=== PATIENT | female | born 1975 | race Hispanic/Latino ===

== ENCOUNTER 2020-08-02 07:34 | Inpatient (IN) | payer MEDICAID, OTHER ==
[2020-08-02] VITALS (12 sets, daily range): BP systolic 97–134; BP diastolic 53–82
[~2020-08-02] VITALS: Ht 152.4 cm; Wt 71.7 kg
[2020-08-02 08:08] LABS: BASOPHILS % (AUTO) 0.7 % (0.0-5.0); HEMATOCRIT 53.7 % (36-48); LYMPHOCYTES % (AUTO) 10.7 % (21.0-51.0); MEAN CORPUSCULAR HEMOGLOBIN 28.7 pg (27.0-33.0); MEAN CORPUSCULAR HGB CONC 32.2 g/dL (32.0-36.0); MEAN CORPUSCULAR VOLUME 89.2 fL (79-99); MONOCYTES % (AUTO) 5.9 % (3.0-13.0); NEUTROPHILS % (AUTO) 80.6 % (40.0-77.0); PLATELET COUNT (AUTO) 324 K/uL (130-400); RED BLOOD CELL COUNT(AUTO) 6.02 MIL/uL (4.00-5.50)
[2020-08-02] MEDS ORDERED: ONDANSETRON HCL 4 MG/2 ML VIAL ONE (08:21)
[2020-08-02] MEDS ORDERED: INSULIN HUMULIN R 100 UNIT/ML 3ML ONE ×2 (08:22→10:03)
[2020-08-02] MEDS ORDERED: SODIUM CHLORIDE 0.9% 1000ML 2,000 ML IV ONE (08:23)
[2020-08-02 08:28] LABS: ALBUMIN 4.3 g/dL (3.5-5.0); BILIRUBIN,TOTAL 0.7 mg/dL (0.2-1.0); CREATININE 1.6 mg/dL (0.5-1.5); POTASSIUM 4.2 mmol/L (3.5-5.1); TOTAL PROTEIN, SERUM 8.7 g/dL (6.0-8.3)
[2020-08-02 08:33] LABS: ABG BASE EXCESS -28.2 mmol/L (-2.0-3.0); ABG OXYGEN SATURATION 96.9 % (95.0-99.0); ABG PCO2 < 15 mmHg (32-45)
[2020-08-02 08:36] LABS: WHITE BLOOD COUNT (AUTO) 34.1 K/uL (4.8-10.8)
[2020-08-02] MEDS ORDERED: SODIUM CHLORIDE 0.9% 1000ML 1,000 ML IV SCH (09:15)
[2020-08-02] MEDS ORDERED: DEXTROSE 5 %-0.45 % NACL 1,000 ML IV PRN (09:15)
[2020-08-02 09:27] LABS: BAND NEUTROPHILS % (MANUAL) 5 % (0-2); LYMPHOCYTES % (MANUAL) 9 % (22-44); MAN.DIFF COMMENT-IMPRESSION MANUAL DIFFERENTIAL; MONOCYTES % (MANUAL) 1 % (2-9); SEGMENTED NEUTROPHILS % 85 % (40-70)
[2020-08-02 09:29] LABS: PLATELET MORPHOLOGY COMMENT ADEQUATE
[2020-08-02] MEDS ORDERED: INSULIN REGULAR, HUMAN 3ML 100 UNIT in SODIUM CHLORIDE 0.9% 99 ML IV PRN ×2 (09:30)
[2020-08-02 09:41] LABS: HEMOGLOBIN A1C 9.2 % (4.0-6.0)
[2020-08-02] MEDS ORDERED: PHARMACY COMMUNICATION MISC SCH ×3 (09:45→18:00)
[2020-08-02 10:03] LABS: CHOLESTEROL 257 mg/dL (<200); LDL DIRECT 82 mg/dL (0-99); TRIGLYCERIDES 774 mg/dL (30-200)
[2020-08-02] MEDS ORDERED: SODIUM CHLORIDE 0.9% 1000ML 1,000 ML IV ONE (10:04)
[2020-08-02 10:18] LABS: HDL CHOLESTEROL 37 mg/dL (35-85)
[2020-08-02 11:41] LABS: APPEARANCE,URINE Clear (CLEAR); BILIRUBIN,URINE Negative (NEGATIVE); COLOR,URINE Yellow (YELLOW); GLUCOSE, URINE (UA) >=1000 mg/dL (NEGATIVE); KETONES,URINE >=160 mg/dL (NEGATIVE); LEUKOCYTE ESTERASE ,URINE Negative (NEGATIVE); NITRATE,URINE Negative (NEGATIVE); OCCULT BLOOD,URINE Small (NEGATIVE); PROTEIN,URINE POS 1+ mg/dL (NEGATIVE); UROBILINOGEN,URINE 0.2 mg/dL (0.2-1.0)
[2020-08-02 11:42] LABS: HCG,QUAL RESULT NEGATIVE (NEGATIVE)
[2020-08-02 11:48] LABS: AMPHET/METH SCREEN,URINE NEGATIVE (NEGATIVE); BARBITURATE SCREEN, URINE NEGATIVE (NEGATIVE); BENZODIAZEPINES SCREEN,URINE NEGATIVE (NEGATIVE); CANNABINOID SCREEN,URINE NEGATIVE (NEGATIVE); COCAINE SCREEN,URINE NEGATIVE (NEGATIVE); OPIATE SCREEN,URINE NEGATIVE (NEGATIVE); PHENCYCLIDINE SCREEN,URINE NEGATIVE (NEGATIVE)
[2020-08-02 11:49] LABS: BACTERIA,URINE Few /HPF (None Seen); MUCUS,URINE Few LPF (None Seen); SQUAMOUS EPITHELIAL CELL,UR 0-2 /HPF (0-2); WBC,URINE 0-1 /HPF (0-1)
[2020-08-02] MEDS ORDERED: ZOSYN 3.375GM+NS 50ML 50 ML IV SCH (12:00)
[2020-08-02] MEDS ORDERED: IBUP-2733 PO (12:16)
[2020-08-02] MEDS ORDERED: ACET-3194 PO (12:16)
[2020-08-02] MEDS ORDERED: AEC81 PO (12:31)
[2020-08-02] MEDS ORDERED: CETI10TA86 PO (12:31)
[2020-08-02] MEDS ORDERED: GABA-529 PO (12:31)
[2020-08-02] MEDS ORDERED: ATOR10TA69 PO (12:31)
[2020-08-02] MEDS ORDERED: FAMO20TA8 PO (12:31)
[2020-08-02] MEDS ORDERED: SERT-438 PO (12:31)
[2020-08-02] MEDS ORDERED: CHOL500045 PO (12:31)
[2020-08-02] MEDS ORDERED: OMEG-125 PO (12:31)
[2020-08-02] MEDS ORDERED: METH-811 PO (12:31)
[2020-08-02] MEDS ORDERED: [UNRECOGNIZED DRUG - OTHER] PO (12:31)
[2020-08-02] MEDS ORDERED: HUM10VIA SQ ×3 (12:40)
[2020-08-02] MEDS ORDERED: INVOK100TB PO (12:40)
[2020-08-02] MEDS: SODIUM CHLORIDE 0.9% 1000ML 1,000 ML IV SCH ×3 (12:55→18:22)
[2020-08-02 13:53] LABS: CREATININE 1.2 mg/dL (0.5-1.5); POTASSIUM 5.1 mmol/L (3.5-5.1)
[2020-08-02 14:32] LABS: ABG BASE EXCESS -26.4 mmol/L (-2.0-3.0); ABG HCO3 3.9 mmol/L (21.0-28.0); ABG OXYGEN SATURATION 96.5 % (95.0-99.0); ABG PCO2 17 mmHg (32-45)
[2020-08-02 15:43] LABS: BASOPHILS % (AUTO) 0.4 % (0.0-5.0); EOSINOPHILS % (AUTO) 0.1 % (0.0-8.0); HEMATOCRIT 47.7 % (36-48); LYMPHOCYTES % (AUTO) 9.3 % (21.0-51.0); MEAN CORPUSCULAR HEMOGLOBIN 28.5 pg (27.0-33.0); MEAN CORPUSCULAR HGB CONC 31.9 g/dL (32.0-36.0); MEAN CORPUSCULAR VOLUME 89.5 fL (79-99); MONOCYTES % (AUTO) 5.9 % (3.0-13.0); NEUTROPHILS % (AUTO) 81.7 % (40.0-77.0); PLATELET COUNT (AUTO) 244 K/uL (130-400); RED BLOOD CELL COUNT(AUTO) 5.33 MIL/uL (4.00-5.50); RED CELL DISTRIBUTION WIDTH 14.2 % (11.0-15.5)
[2020-08-02] MEDS: SODIUM BICARB 50MEQ 50ML VIAL 150 MEQ in WATER FOR INJECTION,STERILE 1,000 ML IV SCH (15:45)
[2020-08-02 15:47] LABS: WHITE BLOOD COUNT (AUTO) 39.1 K/uL (4.8-10.8)
[2020-08-02 15:58] LABS: CREATININE 1.2 mg/dL (0.5-1.5); MAGNESIUM 2.3 mg/dL (1.80-2.40); POTASSIUM 4.4 mmol/L (3.5-5.1)
[2020-08-02] MEDS: MEROPENEM 500 MG VIAL IVP SCH ×2 (16:17→23:42)
[2020-08-02] MEDS ORDERED: MAGNESIUM 2GM PREMIX 50ML 50 ML IV PRN (16:45)
[2020-08-02 17:41] LABS: ABG BASE EXCESS -21.2 mmol/L (-2.0-3.0); ABG OXYGEN SATURATION 96.9 % (95.0-99.0); ABG PCO2 19 mmHg (32-45)
[2020-08-02] MEDS: LINEZOLID 600 MG/ISO-OSM 300 ML IV SCH (18:13)
[2020-08-02 19:14] LABS: ABG BASE EXCESS -20.5 mmol/L (-2.0-3.0); ABG HCO3 6.6 mmol/L (21.0-28.0); ABG OXYGEN SATURATION 49.5 % (95.0-99.0); ABG PCO2 20 mmHg (32-45)
[2020-08-02 19:18] LABS: ABG OXYGEN SATURATION 50.6 % (95.0-99.0); BASE EXCESS,VENOUS BLOOD GAS -20.1 (-2.0-3.0); HCO3,VENOUS BLOOD GAS 6.9 (21.0-28.0); PCO2,VENOUS BLOOD GAS 21 (32-45); PH,VENOUS BLOOD GAS 7.142 (7.350-7.450)
[2020-08-02 19:30] LABS: CREATININE 1.1 mg/dL (0.5-1.5); POTASSIUM 3.7 mmol/L (3.5-5.1)
[2020-08-02 23:35] LABS: POTASSIUM 2.8 mmol/L (3.5-5.1)
[2020-08-02] MEDS: POTASSIUM CHLORIDE 10MEQ/100ML 100 ML IV PRN (23:41)
[2020-08-03] VITALS (24 sets, daily range): BP systolic 92–120; BP diastolic 45–73
[2020-08-03] MEDS: SODIUM BICARB 50MEQ 50ML VIAL 150 MEQ in WATER FOR INJECTION,STERILE 1,000 ML IV SCH ×2
[2020-08-03] MEDS: SODIUM CHLORIDE 0.9% 1000ML 1,000 ML IV SCH ×6 (00:04→21:23)
[2020-08-03] MEDS: POTASSIUM CHLORIDE 10MEQ/100ML 100 ML IV PRN (00:52)
[2020-08-03 04:03] LABS: ALBUMIN 2.8 g/dL (3.5-5.0); BILIRUBIN,TOTAL 0.7 mg/dL (0.2-1.0); CREATININE 1.1 mg/dL (0.5-1.5); TOTAL PROTEIN, SERUM 5.7 g/dL (6.0-8.3)
[2020-08-03 04:05] LABS: POTASSIUM 2.8 mmol/L (3.5-5.1)
[2020-08-03] MEDS ORDERED: POTASSIUM CHLORIDE 10MEQ/100ML 100 ML IV ONE (04:15)
[2020-08-03] MEDS ORDERED: POTASSIUM CHLORIDE 10MEQ/100ML 10 MEQ/100 ML ML IV SCH ×2 (04:15→05:15)
[2020-08-03] MEDS ORDERED: POTASSIUM CHLORIDE 10MEQ/100ML 100 ML IV SCH (05:30)
[2020-08-03] MEDS: LINEZOLID 600 MG/ISO-OSM 300 ML IV SCH ×2 (06:29→18:20)
[2020-08-03 07:26] LABS: POTASSIUM 2.7 mmol/L (3.5-5.1)
[2020-08-03 07:42] LABS: BASE EXCESS,VENOUS BLOOD GAS -9.6 (-2.0-3.0); HCO3,VENOUS BLOOD GAS 14.1 (21.0-28.0); PCO2,VENOUS BLOOD GAS 26 (32-45)
[2020-08-03 07:43] LABS: BASOPHILS % (AUTO) 0.1 % (0.0-5.0); HEMATOCRIT 35.7 % (36-48); LYMPHOCYTES % (AUTO) 10.2 % (21.0-51.0); MEAN CORPUSCULAR HEMOGLOBIN 28.9 pg (27.0-33.0); MEAN CORPUSCULAR HGB CONC 34.7 g/dL (32.0-36.0); MEAN CORPUSCULAR VOLUME 83.2 fL (79-99); MONOCYTES % (AUTO) 5.6 % (3.0-13.0); NEUTROPHILS % (AUTO) 83.4 % (40.0-77.0); PLATELET COUNT (AUTO) 144 K/uL (130-400); RED BLOOD CELL COUNT(AUTO) 4.29 MIL/uL (4.00-5.50); RED CELL DISTRIBUTION WIDTH 14.3 % (11.0-15.5)
[2020-08-03 07:48] LABS: WHITE BLOOD COUNT (AUTO) 14.4 K/uL (4.8-10.8)
[2020-08-03] MEDS ORDERED: POTASSIUM CHLORIDE 20 MEQ ERTAB PO SCH ×2 (08:00→15:30)
[2020-08-03] MEDS: DEXTROSE 5%-LACTATED RINGERS 1,000 ML IV SCH ×3 (08:44→21:23)
[2020-08-03] MEDS: MEROPENEM 500 MG VIAL IVP SCH ×2 (08:52→16:37)
[2020-08-03] MEDS ORDERED: LIDOCAINE HCL-MPF 1% 2ML VIAL IJ PRN (11:15)
[2020-08-03] MEDS ORDERED: POTASSIUM CHLORIDE 20MEQ/100ML 100 ML IV PRN (11:15)
[2020-08-03 11:35] LABS: CREATININE 1.1 mg/dL (0.5-1.5)
[2020-08-03 11:47] LABS: POTASSIUM 2.6 mmol/L (3.5-5.1)
[2020-08-03] MEDS: POTASSIUM CHLORIDE 40 MEQ in DEXTROSE 5%-LACTATED RINGERS 980 ML IV SCH ×3 (12:08→21:06)
[2020-08-03] MEDS ORDERED: POTASSIUM CHLORIDE 20 MEQ ERTAB PO ONE (14:13)
[2020-08-03 15:01] LABS: APPEARANCE,URINE Clear (CLEAR); BILIRUBIN,URINE Negative (NEGATIVE); COLOR,URINE Yellow (YELLOW); GLUCOSE, URINE (UA) >=1000 mg/dL (NEGATIVE); KETONES,URINE >=160 mg/dL (NEGATIVE); LEUKOCYTE ESTERASE ,URINE Negative (NEGATIVE); NITRATE,URINE Negative (NEGATIVE); OCCULT BLOOD,URINE Small (NEGATIVE); PROTEIN,URINE Negative (NEGATIVE); UROBILINOGEN,URINE 0.2 mg/dL (0.2-1.0)
[2020-08-03 15:05] LABS: CHLORIDE,URINE RANDOM 80 mmol/L (110-250); CREATININE,URINE RANDOM 21 mg/dL (30-135); POTASSIUM,URINE RANDOM 18 mmol/L (25-125); SODIUM,URINE RANDOM 63 mmol/l (40-220)
[2020-08-03 15:11] LABS: BACTERIA,URINE Rare /HPF (None Seen); RBC,URINE None Seen /HPF (0-1); WBC,URINE 0-1 /HPF (0-1)
[2020-08-03 15:12] LABS: COARSE GRANULAR CASTS,URINE 0-2 /LPF (None Seen); HYALINE CASTS, URINE 0-1 /LPF (0-1 /LPF); SQUAMOUS EPITHELIAL CELL,UR None Seen /HPF (0-2)
[2020-08-03 16:06] LABS: HEMOGLOBIN A1C 9.7 % (4.0-6.0)
[2020-08-03] MEDS: ONDANSETRON HCL 4 MG/2 ML VIAL IVP PRN ×2 (16:09→18:53)
[2020-08-03 16:13] LABS: POTASSIUM 3.7 mmol/L (3.5-5.1)
[2020-08-03 16:19] LABS: CHOLESTEROL 164 mg/dL (<200); HDL CHOLESTEROL 127 mg/dL (35-85); LDL DIRECT 65 mg/dL (0-99); TRIGLYCERIDES 358 mg/dL (30-200)
[2020-08-04] VITALS (15 sets, daily range): BP systolic 109–151; BP diastolic 46–115
[2020-08-04] MEDS: MEROPENEM 500 MG VIAL IVP SCH ×4 (01:08→23:05)
[2020-08-04 01:18] LABS: CREATININE 0.9 mg/dL (0.5-1.5); POTASSIUM 3.7 mmol/L (3.5-5.1)
[2020-08-04] MEDS: DEXTROSE 5%-LACTATED RINGERS 1,000 ML IV SCH ×2 (03:45→11:21)
[2020-08-04] MEDS: SODIUM CHLORIDE 0.9% 1000ML 1,000 ML IV SCH ×4 (03:46→18:07)
[2020-08-04] MEDS: POTASSIUM CHLORIDE 40 MEQ in DEXTROSE 5%-LACTATED RINGERS 980 ML IV SCH ×3 (04:38→18:08)
[2020-08-04 04:40] LABS: ABG OXYGEN SATURATION 70.4 % (95.0-99.0); BASE EXCESS,VENOUS BLOOD GAS -8.5 (-2.0-3.0); HCO3,VENOUS BLOOD GAS 16.7 (21.0-28.0); PCO2,VENOUS BLOOD GAS 34 (32-45); PH,VENOUS BLOOD GAS 7.306 (7.350-7.450)
[2020-08-04 05:49] LABS: BASOPHILS % (AUTO) 0.3 % (0.0-5.0); HEMATOCRIT 39.3 % (36-48); LYMPHOCYTES % (AUTO) 15.1 % (21.0-51.0); MEAN CORPUSCULAR HEMOGLOBIN 28.9 pg (27.0-33.0); MEAN CORPUSCULAR HGB CONC 34.4 g/dL (32.0-36.0); MEAN CORPUSCULAR VOLUME 84.2 fL (79-99); MONOCYTES % (AUTO) 7.6 % (3.0-13.0); NEUTROPHILS % (AUTO) 76.5 % (40.0-77.0); PLATELET COUNT (AUTO) 144 K/uL (130-400); RED BLOOD CELL COUNT(AUTO) 4.67 MIL/uL (4.00-5.50); RED CELL DISTRIBUTION WIDTH 14.9 % (11.0-15.5); WHITE BLOOD COUNT (AUTO) 9.9 K/uL (4.8-10.8)
[2020-08-04 06:14] LABS: ALBUMIN 2.8 g/dL (3.5-5.0); BILIRUBIN,TOTAL 0.7 mg/dL (0.2-1.0); CREATININE 0.9 mg/dL (0.5-1.5); POTASSIUM 3.9 mmol/L (3.5-5.1); TOTAL PROTEIN, SERUM 6.1 g/dL (6.0-8.3)
[2020-08-04] MEDS: LINEZOLID 600 MG/ISO-OSM 300 ML IV SCH ×2 (06:49→17:22)
[2020-08-04 08:42] LABS: CHOLESTEROL 175 mg/dL (<200); HDL CHOLESTEROL 39 mg/dL (35-85); LDL DIRECT 84 mg/dL (0-99); LIPASE 253 U/L (114-286); TRIGLYCERIDES 271 mg/dL (30-200)
[2020-08-04] MEDS: FAMOTIDINE/PF 20 MG/2 ML VIAL IV SCH ×2 (08:55→08:57)
[2020-08-04] MEDS: ENOXAPARIN SODIUM 40 MG/0.4 ML SYRINGE SQ SCH (08:55)
[2020-08-04 11:17] LABS: CREATININE 0.9 mg/dL (0.5-1.5); POTASSIUM 3.7 mmol/L (3.5-5.1)
[2020-08-04 16:39] LABS: CREATININE 0.9 mg/dL (0.5-1.5); POTASSIUM 3.9 mmol/L (3.5-5.1)
[2020-08-04] MEDS ORDERED: INSULIN GLARGINE 100 UNITS/ML 10 ML VIAL SQ SCH ×2 (18:45→21:30)
[2020-08-04] MEDS: INSULIN HUMULIN R 100 UNIT/ML 3ML SQ SCH (20:49)
[2020-08-05] MEDS ORDERED: PROPOFOL 1000 MG/100 ML 100 ML IV SCH (01:00)
[2020-08-05] MEDS: SODIUM CHLORIDE 0.9% 1000ML 1,000 ML IV SCH ×2 (02:15→05:49)
[2020-08-05 03:46] LABS: BASOPHILS % (AUTO) 0.6 % (0.0-5.0); EOSINOPHILS % (AUTO) 1.5 % (0.0-8.0); HEMATOCRIT 40.6 % (36-48); LYMPHOCYTES % (AUTO) 22.2 % (21.0-51.0); MEAN CORPUSCULAR HEMOGLOBIN 28.5 pg (27.0-33.0); MEAN CORPUSCULAR HGB CONC 33.5 g/dL (32.0-36.0); MEAN CORPUSCULAR VOLUME 84.9 fL (79-99); NEUTROPHILS % (AUTO) 69.5 % (40.0-77.0); PLATELET COUNT (AUTO) 146 K/uL (130-400); RED BLOOD CELL COUNT(AUTO) 4.78 MIL/uL (4.00-5.50); RED CELL DISTRIBUTION WIDTH 14.6 % (11.0-15.5); WHITE BLOOD COUNT (AUTO) 8.4 K/uL (4.8-10.8)
[2020-08-05 03:59] VITALS: BP 126/65
[2020-08-05 04:05] LABS: ALBUMIN 2.9 g/dL (3.5-5.0); BILIRUBIN,TOTAL 0.9 mg/dL (0.2-1.0); MAGNESIUM 2.3 mg/dL (1.80-2.40); PHOSPHORUS 2.3 mg/dL (2.5-4.9); POTASSIUM 3.6 mmol/L (3.5-5.1); TOTAL PROTEIN, SERUM 6.3 g/dL (6.0-8.3)
[2020-08-05] MEDS: LINEZOLID 600 MG/ISO-OSM 300 ML IV SCH (05:42)
[2020-08-05] MEDS: INSULIN HUMULIN R 100 UNIT/ML 3ML SQ SCH ×6 (05:56→17:00)
[2020-08-05] MEDS: MEROPENEM 500 MG VIAL IVP SCH ×2 (08:37→16:00)
[2020-08-05] MEDS ORDERED: HUM10VIA SQ ×2 (08:48)
[2020-08-05 08:49] VITALS: BP 126/57
[2020-08-05] MEDS: ENOXAPARIN SODIUM 40 MG/0.4 ML SYRINGE SQ SCH (09:00)
[2020-08-05] MEDS ORDERED: INSULIN GLARGINE 100 UNITS/ML 10 ML VIAL SQ ONE (09:20)
[2020-08-05] MEDS: FAMOTIDINE/PF 20 MG/2 ML VIAL IV SCH (10:59)
[2020-08-05 12:11] VITALS: BP 142/74
[2020-08-05] MEDS ORDERED: NEUTRA-PHOS PACKET 1 EACH PO SCH (15:15)
== END 2020-08-05 17:50 | disposition home or self-care (01) | DRG 871 ==
LOC: EDH 07:34 → EDHIP 07:35 → 2DH 11:44 → 3BH 08-04 21:31
PROVIDERS: ADMIT Internal Medicine; ATTEND Internal Medicine
DX: A41.9 Sepsis, unspecified organism (principal); E11.10 Type 2 diabetes mellitus with ketoacidosis without coma; K85.90 Acute pancreatitis without necrosis or infection, unspecified; N17.9 Acute kidney failure, unspecified; E87.1 Hypo-osmolality and hyponatremia; K86.3 Pseudocyst of pancreas; I12.9 Hypertensive chronic kidney disease with stage 1 through stage 4 chronic kidney disease, or unspecified chronic kidney disease; E86.1 Hypovolemia; E78.5 Hyperlipidemia, unspecified; E87.5 Hyperkalemia; E11.22 Type 2 diabetes mellitus with diabetic chronic kidney disease; E66.9 Obesity, unspecified; E78.1 Pure hyperglyceridemia; E83.39 Other disorders of phosphorus metabolism; E87.6 Hypokalemia; K76.0 Fatty (change of) liver, not elsewhere classified; K80.20 Calculus of gallbladder without cholecystitis without obstruction; N18.9 Chronic kidney disease, unspecified; Z83.3 Family history of diabetes mellitus; K21.9 Gastro-esophageal reflux disease without esophagitis; Z68.30 Body mass index [BMI] 30.0-30.9, adult
CPT/HCPCS: 36415; 36600; 71045; 74018; 74176; 76705; 80048; 80051; 80053; 80061; 80305; 81001; 81025; 82010; 82150; 82570; 82803; 82948; 83036; 83605; 83690; 83735; 83880; 83935; 84100; 84132; 84145; 85025; 87040; 87088; 93005; 99291; A4344; G0378; J1650; J1815; J2020; J2185; J2405; J2543; J3480; J3490; J7030; J7042